=== PATIENT | male | born 1955 | race Caucasian/White ===

== ENCOUNTER → 2021-03-01 | Outpatient (CLI) | payer MEDICARE ==
[~2021-03-01] MED LIST: BEVESPI AEROSPHERE INH; CELEXA10 MG PO; ECOTRIN81 MG PO; ELAVIL 25 MG TA25 MG PO; FERROUS SULFAT325 M2 PO; FLONASE 0.05% N16 GM; LOPRESSOR 25 MG25 MG PO; LOPRESSOR 50 MG50 MG PO; MOBIC15 MG PO; NEURONTIN 400400 MG PO; NITROSTAT0.4 MG SL; SENOKOT-S TABL1 EACH PO; VENTOLIN HFA 66.7 GM INH; VITAMIN D50000 UNIT PO
== END ==
LOC: RAD 15:48
DX: J44.0 Chronic obstructive pulmonary disease with (acute) lower respiratory infection (principal); J22 Unspecified acute lower respiratory infection
CPT/HCPCS: 71046

== ENCOUNTER → 2021-06-25 | Outpatient (CLI) | payer MEDICARE | LOC: HEART 5 10:24 | DX: J44.9 Chronic obstructive pulmonary disease, unspecified (principal) | CPT/HCPCS: 94060; 94729 ==

== ENCOUNTER → 2021-11-29 | Outpatient (CLI) | payer MEDICARE | LOC: KOH-I 11:03 | DX: M54.50 Low back pain, unspecified (principal); M51.16 Intervertebral disc disorders with radiculopathy, lumbar region | CPT/HCPCS: 72148 ==

== ENCOUNTER → 2021-12-04 | Outpatient (CLI) | payer MEDICARE ==
[~2021-12-04] MED LIST changes: +ALBUTEROL INH; +CITALOPRAM HBR20 MG PO
== END ==
LOC: KOH-I 09:00
DX: M47.27 Other spondylosis with radiculopathy, lumbosacral region (principal); M48.061 Spinal stenosis, lumbar region without neurogenic claudication
CPT/HCPCS: 72131

== ENCOUNTER → 2021-12-05 | Outpatient (CLI) | payer MEDICARE | LOC: KOH-I 13:00 | DX: F17.210 Nicotine dependence, cigarettes, uncomplicated (principal); R91.8 Other nonspecific abnormal finding of lung field; K76.9 Liver disease, unspecified | CPT/HCPCS: 71271 ==

== ENCOUNTER → 2021-12-06 | Outpatient (CLI) | payer MEDICARE ==
[2021-12-06 13:29] LABS: HEMOGLOBIN 18.1 gm/dl (14.0-17.5); RED BLOOD COUNT 5.93 M/UL (4.20-5.50); WHITE BLOOD COUNT 14.5 K/UL (4.5-11.0)
== END ==
LOC: OPSV2 12-04 08:00 → EDSTATUS 12:30 → OPSV2 12:35
PROVIDERS: Orthopaedic Surgery
DX: Z01.818 Encounter for other preprocedural examination (principal); J43.9 Emphysema, unspecified; R94.31 Abnormal electrocardiogram [ECG] [EKG]
CPT/HCPCS: 71046; 80048; 81001; 85027; 85610; 85730; 87081; 93005

== ENCOUNTER → 2022-02-07 | Outpatient (CLI) | payer MEDICARE | LOC: HEART 5 12-27 08:00 | DX: I25.119 Atherosclerotic heart disease of native coronary artery with unspecified angina pectoris (principal); I10 Essential (primary) hypertension; I08.3 Combined rheumatic disorders of mitral, aortic and tricuspid valves | CPT/HCPCS: 78452; 93306; A9502; J2785 ==